=== PATIENT | male | born 1970 | race Caucasian/White ===

== ENCOUNTER 2018-01-04 10:57 | Inpatient (IN) | payer OTHER ==
[~2018-01-04] VITALS: Ht 180.3 cm; Wt 104.8 kg
[2018-01-04] MEDS ORDERED: AVAPRO300 MG PO (11:41)
[2018-01-14] MEDS ORDERED: HYOSCYAMINE0.125 M1 SL (11:30)
[2018-01-14] MEDS ORDERED: OXYC1TAB9 PO (11:31)
== END 2018-01-14 13:09 | disposition home or self-care (01) | DRG 331 ==
LOC: O/R 01-11 05:35 → SURG 01-11 05:35 → SURH 01-11 08:00 → SURG 01-11 11:37
PROVIDERS: Surgery
PROC: 0DTP4ZZ Resection of Rectum, Percutaneous Endoscopic Approach (ICD-10-PCS; 2018-01-11)
PROC: 07TC4ZZ Resection of Pelvis Lymphatic, Percutaneous Endoscopic Approach (ICD-10-PCS; 2018-01-11)
PROC: 0DJD8ZZ Inspection of Lower Intestinal Tract, Via Natural or Artificial Opening Endoscopic (ICD-10-PCS; 2018-01-11)
PROC: 0DTN4ZZ Resection of Sigmoid Colon, Percutaneous Endoscopic Approach (ICD-10-PCS; principal; 2018-01-11 08:00)
DX: C19 Malignant neoplasm of rectosigmoid junction (principal); R59.0 Localized enlarged lymph nodes; I11.9 Hypertensive heart disease without heart failure; E66.8 Other obesity

== ENCOUNTER 2019-01-27 08:00 | Day surgery (SDC) | payer OTHER ==
[~2019-01-27 08:00] MED LIST: AVAPRO300 MG PO; HYOSCYAMINE0.125 M1 SL; OXYC1TAB9 PO; ULTRACET PO
== END 2019-01-27 13:40 | disposition home or self-care (01) ==
LOC: AMB-ENDOS 08:00
DX: D12.3 Benign neoplasm of transverse colon (principal)

== ENCOUNTER 2019-11-24 06:15 | Day surgery (SDC) | payer OTHER | END 2019-11-24 12:00 | disposition home or self-care (01) | LOC: AMB-ENDOS 06:15 → ADM 14:30 → AMB-ENDOS 14:30 | PROVIDERS: ATTEND Surgery | DX: K62.89 Other specified diseases of anus and rectum (principal) ==

== ENCOUNTER 2020-12-24 09:37 | Day surgery (SDC) | payer OTHER | END 2020-12-24 12:40 | disposition home or self-care (01) | LOC: AMB-ENDOS 09:37 → LAB 13:03 | PROVIDERS: ATTEND Surgery | DX: K62.89 Other specified diseases of anus and rectum (principal); Z20.822 Contact with and (suspected) exposure to COVID-19 ==

== ENCOUNTER 2020-12-25 14:55 | Outpatient (CLI) | payer OTHER | END 2020-12-25 15:04 | disposition home or self-care (01) | LOC: LAB 14:55 | PROVIDERS: ATTEND Surgery | DX: Z01.812 Encounter for preprocedural laboratory examination (principal); Z20.828 Contact with and (suspected) exposure to other viral communicable diseases; Z85.048 Personal history of other malignant neoplasm of rectum, rectosigmoid junction, and anus; Z86.010 Personal history of colon polyps ==

== ENCOUNTER 2020-12-26 04:45 | Day surgery (SDC) | payer OTHER | END 2020-12-26 10:10 | disposition home or self-care (01) | LOC: CIR.AMB 04:45 | PROVIDERS: ATTEND Surgery | DX: C18.8 Malignant neoplasm of overlapping sites of colon (principal); Z20.822 Contact with and (suspected) exposure to COVID-19 ==

== ENCOUNTER 2021-12-08 09:26 | Emergency (ER) | payer OTHER ==
[~2021-12-08] VITALS: Ht 154.9 cm; Wt 106.1 kg
== END 2021-12-08 10:15 | disposition home or self-care (01) ==
LOC: ER 09:26
DX: L02.416 Cutaneous abscess of left lower limb (principal); I10 Essential (primary) hypertension; Z91.013 Allergy to seafood

== ENCOUNTER 2021-12-23 06:12 | Outpatient (CLI) | payer OTHER | END 2021-12-23 06:13 | disposition home or self-care (01) | LOC: LAB 06:12 | PROVIDERS: ATTEND Specialist | DX: R05.9 Cough, unspecified (principal); R50.9 Fever, unspecified; Z03.818 Encounter for observation for suspected exposure to other biological agents ruled out; Z20.822 Contact with and (suspected) exposure to COVID-19 ==